=== PATIENT | female | born 2000 | race African-American/Black ===

== ENCOUNTER 2020-09-03 12:31 | Emergency (ER) | payer OTHER, SELFPAY ==
[2020-09-03] MEDS ORDERED: Ibuprofen 800 MG TAB ONE (12:41)
== END 2020-09-03 13:10 | disposition home or self-care (01) ==
LOC: MADERS 12:31
DX: S01.511A Laceration without foreign body of lip, initial encounter (principal); S20.219A Contusion of unspecified front wall of thorax, initial encounter; S50.812A Abrasion of left forearm, initial encounter; V43.52XA Car driver injured in collision with other type car in traffic accident, initial encounter
CPT/HCPCS: 71046